=== PATIENT | female | born 1965 ===

== ENCOUNTER 2017-11-14 20:16 | Emergency (ER) | payer MEDICAID ==
[~2017-11-14] VITALS: Ht 165.1 cm; Wt 59.0 kg
--- NOTE | 2017-11-14 20:20 | NUR ---
Dr. Trent at bedside for MSE.
[2017-11-14] MEDS ORDERED: LIDOCAINE 1%-EPI 1:100,000 20 ML VIAL TP ONE (20:30)
--- NOTE | 2017-11-14 20:30 | NUR ---
Patient brought in by rescue, has a two lacerations on the right tibia from a sharp instrument. Wound prepped for suture.
[2017-11-14] MEDS ORDERED: NEOMY/BACITRA/POLYMYXIN B OINT UD PACKET TP ONE ×2 (21:11→21:15)
[2017-11-14] MEDS ORDERED: ACETAMINOPHEN ES 500 MG TABLET PO ONE (21:30)
[2017-11-14] MEDS ORDERED: ACETAMINOPHEN ES 500 MG TABLET ONE (21:31)
--- NOTE | 2017-11-14 21:36 | NUR ---
Patient discharged to home in stable conditon. Written and verbal after care instructions given. Patient verbalizes understanding of instructions. Patient placed on wheelchair, pushed by friend, VSS, no acute signs of distress, all belongings taken.
[2017-11-14 22:03] VITALS: BP 115/67
== END 2017-11-14 21:40 | disposition home or self-care (01) ==
LOC: ER 20:16
DX: S81.811A Laceration without foreign body, right lower leg, initial encounter (principal); W18.39XA Other fall on same level, initial encounter; Y93.89 Activity, other specified; Y92.89 Other specified places as the place of occurrence of the external cause; Y99.8 Other external cause status
CPT/HCPCS: A4663; A9150

== ENCOUNTER 2017-11-30 22:51 | Emergency (ER) | payer MEDICAID ==
[~2017-11-30] VITALS: Ht 165.1 cm; Wt 59.0 kg
[2017-11-30] MEDS ORDERED: CEFTRIAXONE 1 G VIAL IM ONE (23:45)
[2017-11-30] MEDS ORDERED: SULFAMETH/TRIMETH 800/160 MG TABLET PO ONE (23:45)
[2017-11-30] MEDS ORDERED: LIDOCAINE HCL 1% 20 ML VIAL ONE (23:47)
[2017-11-30] MEDS ORDERED: SULFAMETH/TRIMETH 800/160 MG TABLET ONE (23:47)
[2017-11-30] MEDS ORDERED: CEFTRIAXONE 1 G VIAL ONE (23:47)
--- NOTE | 2017-12-01 | NUR ---
MSE COMPLETE, DR HUMPHREYS REMOVED THE SUTURES TO BOTH WSITES OF RLE, I THEN PLACED A BANDAGE TO BOTH SITES, ADMINISTERED ORDERED ANTIBIOTICS AND THEN D/C'D THE PT HOME, PT AMBULATED W/O DIFF/TOOK ALL BELONGINGS.
[2017-12-01 00:04] VITALS: BP 120/72
== END 2017-12-01 00:04 | disposition home or self-care (01) ==
LOC: ER 22:55
DX: S81.811D Laceration without foreign body, right lower leg, subsequent encounter (principal); X58.XXXD Exposure to other specified factors, subsequent encounter; L08.89 Other specified local infections of the skin and subcutaneous tissue
CPT/HCPCS: A4663; J0696; J3490